=== PATIENT | female | born 1965 | race Caucasian/White ===

== ENCOUNTER → 2024-04-05 12:37 | Outpatient (REF) | payer OTHER, SELFPAY | LOC: HWWDC 12:37 | PROVIDERS: ATTENDING PHYSICIAN Physician Assistant Medical | DX: Z12.31 Encounter for screening mammogram for malignant neoplasm of breast (principal) | CPT/HCPCS: 77063; 77067 ==

== ENCOUNTER → 2025-05-11 10:29 | Outpatient (REF) | payer OTHER, SELFPAY | LOC: HWWDC 10:29 | PROVIDERS: ATTENDING PHYSICIAN Nurse Practitioner | DX: M85.80 Other specified disorders of bone density and structure, unspecified site (principal); Z12.31 Encounter for screening mammogram for malignant neoplasm of breast | CPT/HCPCS: 77063; 77067; 77080 ==